=== PATIENT | female | born 1995 | race Two or more races ===

== ENCOUNTER 2019-07-28 22:52 | Emergency (ER) | payer SELFPAY ==
[~2019-07-28] VITALS: Ht 144.8 cm; Wt 68.0 kg
[2019-07-28 22:56] VITALS: BP 132/88
--- NOTE | 2019-07-28 22:56 | NUR ---
ED Nurse Note: [facility]. Unknown cause/ trauma. Patient is argumentative, combative and aggitated. No stated medical hx. Alert and oriented, verbally responsive. No SOB. Breathing even and unlabored. VSS. Patient is under custody.
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
[2019-07-28 23:02] VITALS: BP 132/88
--- NOTE | 2019-07-28 23:02 | NUR ---
ED Nurse Note: Pt cleared by ERMD for discharge. DC instructions was given and explained to pt and verbalized understanding of teachings. All medical deviecs such as ID band removed. Pt is AAO x4, ambulatory and left with all personal belongings. Patient is under custody and is accompanied by [employer] officer.
== END 2019-07-28 23:02 ==
LOC: EMR 23:02
DX: M54.9 Dorsalgia, unspecified (principal); M25.532 Pain in left wrist
CPT/HCPCS: 99282

== ENCOUNTER 2019-07-29 00:33 | Emergency (ER) | payer SELFPAY ==
[~2019-07-29] VITALS: Ht 144.8 cm; Wt 63.5 kg
[2019-07-29 00:50] VITALS: BP 130/78
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
[2019-07-29 00:55] VITALS: BP 130/78
--- NOTE | 2019-07-29 00:55 | NUR ---
ER Nurse Note: Pt seen, treated, medically cleared for "okay to book" by ER MD. Discharge instuctions and prescriptions given with repeat verbalization by pt. Emphasized to follow up with primay care provider. All orders completed per ERMD orders. Pt a&ox4, VSS, no signs of distress. ID band removed. All questions answered per pt's questions. Pt left with all belongings, left with [employer].
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
== END 2019-07-29 00:55 ==
LOC: EMR 00:40
DX: S63.501A Unspecified sprain of right wrist, initial encounter (principal); S09.90XA Unspecified injury of head, initial encounter; Y35.93XA Legal intervention, means unspecified, suspect injured, initial encounter; Y92.9 Unspecified place or not applicable
CPT/HCPCS: 99281